=== PATIENT | male | born 1995 | race Caucasian/White ===

== ENCOUNTER 2016-06-15 10:42 | Emergency (ER) | payer BC ==
[~2016-06-15] VITALS: Ht 170.2 cm; Wt 90.7 kg
[2016-06-15 10:42] VITALS: BP 135/75; PULSE 61; RESP 19; TEMP 97.4; O2SAT 96
--- NOTE | 2016-06-15 10:42 | NUR ---
Patient triaged and placed in waiting room. VSS and patient appears in no acute distress at this time. Accompanied by SELF, awaiting available bed, and MD notified of need for MSE.
--- NOTE | 2016-06-15 10:42 | NUR ---
Note lisandra in EDM - 06/15/16 at 1337 by LIZZETTE Pt report received from HIPOLITO Jackson. Pt has lac to Right Thumb from an industrial machine. Nail bed appears cut in several places. Good perfusion to distal thumb. Bleeding controlled.
--- NOTE | 2016-06-15 11:05 | NUR ---
BROUGHT BACK TO BED #3 AND REPORT GIVEN TO EDUAR
--- NOTE | 2016-06-15 11:05 | NUR ---
Teodora fry in [facility] - 06/15/16 at 1113 by [email or web address] PLACED IN BED #7 AND REPORT GIVEN TO EDUAR
--- NOTE | 2016-06-15 11:30 | NUR ---
ER at bedside examining patient.
--- NOTE | 2016-06-15 11:35 | NUR ---
PT PRESENTS TO ED C/O COUGH AND BODY ACHES.
--- NOTE | 2016-06-15 12:00 | NUR ---
No needs verbalized at this time.
[2016-06-15 13:00] VITALS: BP 126/72; PULSE 82; RESP 20; TEMP 97.4; O2SAT 100
--- NOTE | 2016-06-15 13:00 | NUR ---
Patient given written and verbal discharge instructions and verbalizes understanding. ER MD discussed with patient the results and treatment provided. Patient in stable condition. ID arm band removed. Rx of Ibuprofen given. Patient educated on pain management and to follow up with PMD. Pain Scale 0/10. Opportunity for questions provided and answered.
== END 2016-06-15 13:00 | disposition home or self-care (01) ==
LOC: SED 10:42
DX: B34.9 Viral infection, unspecified (principal)
CPT/HCPCS: 71020-TC; 99284